=== PATIENT | female | born 1995 | race African-American/Black ===

== ENCOUNTER 2020-02-29 15:10 | Emergency (ER) | payer MEDICAID ==
[~2020-02-29] VITALS: Ht 172.7 cm; Wt 54.4 kg
--- NOTE | 2020-02-29 15:36 | NUR ---
Pt c/o severe stabbing frontal MONROY and dizziness, no change in vision or photophobia. Pt also c/o neck pain and numbness extending from neck down both shoulders and arms, al x 1 day. Pt denies CP, SOB, n/v, no other complaints, minor distress noted.
[2020-02-29] MEDS: IBUPROFEN 400 MG TABLET PO ONE (16:52)
--- NOTE | 2020-02-29 16:54 | NUR ---
Pt stated she would take her own ibuprofen at home. Pt given d/c instructions, pt verbalized understanding.
== END 2020-02-29 16:59 | disposition home or self-care (01) ==
LOC: ER 15:10
DX: R51 Headache (principal)
CPT/HCPCS: A4663